=== PATIENT | female | born 1995 | race Caucasian/White ===

== ENCOUNTER 2024-03-05 16:58 | Emergency (ER) | payer OTHER ==
[~2024-03-05] VITALS: Ht 160 cm; Wt 88.5 kg
[2024-03-05] MEDS ORDERED: predniSONE 20 MG TAB PO ONE (17:20)
[2024-03-05] MEDS ORDERED: CLOBETASOL PROPIONATE 30 GM TUBE T ONE (17:20)
[2024-03-05] MEDS ORDERED: EPIPEN 2-P0.3 MG/0.3 IJ ×2 (17:23→17:42)
[2024-03-05] MEDS ORDERED: PREDNISONE20 M1 PO (17:24)
[2024-03-05] MEDS ORDERED: IBUPROFEN 600 MG TAB PO ONE (18:05)
[2024-03-05] MEDS ORDERED: ACETAMINOPHEN 325 MG TAB PO ONE (18:05)
== END 2024-03-05 18:29 | disposition home or self-care (01) ==
LOC: ED 16:58
DX: T63.441A Toxic effect of venom of bees, accidental (unintentional), initial encounter (principal); Y92.89 Other specified places as the place of occurrence of the external cause